=== PATIENT | female | born 1975 | race Two or more races ===

== ENCOUNTER 2019-06-24 18:02 | Emergency (ER) | payer SELFPAY ==
[~2019-06-24] VITALS: Ht 165.1 cm; Wt 113.4 kg
[2019-06-24 18:15] VITALS: BP 157/88
[2019-06-24 19:09] LABS: Urine Bacteria FEW /hpf (None Seen); Urine Blood Negative /uL (Negative); Urine Mucus FEW (None Seen); Urine Specific Gravity 1.026 (1.001-1.035); Urine WBC 13 /hpf (0 - 5)
== END 2019-06-24 20:52 | disposition home or self-care (01) ==
LOC: ER 18:02
DX: N39.0 Urinary tract infection, site not specified (principal)
CPT/HCPCS: 81001

== ENCOUNTER 2021-03-30 22:51 | Emergency (ER) | payer MEDICAID, OTHER ==
[~2021-03-30] VITALS: Ht 152.4 cm; Wt 99.8 kg
[2021-03-31] MEDS ORDERED: ACETAMINOPHEN 500 MG TAB PO ONE ×2 (00:07→00:10)
[2021-03-31 00:41] LABS: Eosinophils # (auto) 0.2 10 ^3/uL (0-0.8); Eosinophils % (auto) 2.6 % (0.0-7.0); Neutrophils # (auto) 3.8 10 ^3/uL (1.6-8.6); Red Cell Distribution Width 19.3 % (11.8-14.3); White Blood Cell 7.6 10^3/uL (4.4-10.8)
[2021-03-31 00:45] LABS: Basophils # (auto) 0.1 10 ^3/uL (0-0.2); Basophils % (auto) 0.9 % (0.0-2.0); Hematocrit 31.1 % (36.0-46.0); Hemoglobin 9.5 g/dL (12.2-16.2); Lymphocytes % (auto) 39.9 % (10.0-50.0); Mean Corpuscular Hgb Conc. 30.4 g/dL (32.0-36.0); Mean Corpuscular Volume 69.1 fL (80.0-100.0); Monocytes # (auto) 0.4 10 ^3/uL (0-1.3); Monocytes % (auto) 5.9 % (0.0-12.0); Neutrophils % (auto) 50.7 % (37.0-80.0); Nucleated Red Blood Cells % 0.2 %; Red Blood Cells 4.51 10^6/uL (4.0-5.20)
[2021-03-31 00:52] LABS: Alanine Aminotransferase 18 U/L (13-56); Albumin 3.3 g/dL (3.4-5.0); Anion Gap 8 (5-15); Aspartate Aminotransferase 17 U/L (15-37); BUN/Creatinine Ratio 11.8; Blood Urea Nitrogen 9 mg/dL (7-18); Calcium 7.9 mg/dL (8.5-10.1); Carbon Dioxide 23 mmol/L (21-32); Chloride 107 mmol/L (98-107); GFR African American 105 mL/min; GFR Non-African American 87 mL/min; Glucose 90 mg/dL (74-106); Magnesium 1.9 mg/dL (1.6-2.6); Sodium 138 mmol/L (136-145)
[2021-03-31 00:58] LABS: Alkaline Phosphatase 52 U/L (45-117); Bilirubin, Total 0.2 mg/dL (0.2-1.0); Total Protein 7.5 g/dL (6.4-8.2)
[2021-03-31 01:04] LABS: Beta HCG, Quantitative < 1 mlU/mL (1-3)
[2021-03-31 01:29] LABS: Partial Thromboplastin Time 23.9 sec (23.0-31.2)
[2021-03-31 05:00] VITALS: BP 142/80
== END 2021-03-31 06:36 | disposition home or self-care (01) ==
LOC: EDBD 22:51 → EDUNIT# 22:51 → ER 22:51
DX: R07.89 Other chest pain (principal); G51.0 Bell's palsy; R60.0 Localized edema
CPT/HCPCS: 36415; 71045; 80053; 82962; 83735; 83880; 84443; 84484; 84702; 85025; 85610; 85730; 93005